=== PATIENT | female | born 2000 ===

== ENCOUNTER 2023-01-10 08:23 | Day surgery (SDC) | payer OTHER ==
[2023-01-04 10:44] LABS: HEMATOCRIT 40.8 % (36.0-45.00); HEMOGLOBIN 13.7 g/dL (12.0-15.00); MEAN CORPUSCULAR HEMOGLOBIN 28.9 pg (27.00-32.0); MEAN CORPUSCULAR HGB CONC 33.6 g/dl (32.0-36.0); PLATELET COUNT 404 K/uL (150-450); RED BLOOD COUNT 4.75 M/uL (4.00-6.00); RED CELL DISTRIBUTION WIDTH 14.1 % (11.5-14.5)
[2023-01-04 12:12] LABS: INR 1.08; PARTIAL THROMBOPLASTIN TIME 34.2 SECONDS (22.0-34.0); PROTHROMBIN TIME 11.3 SECONDS (9.0-11.5)
[2023-01-04 12:18] LABS: BILIRUBIN TOTAL 0.56 mg/dL (0.3-1.2); CALCIUM 9.4 mg/dL (8.5-10.1); CREATININE SERUM 0.5 mg/dL (0.55-1.02); GFR 154.28; GLOBULINA 3.6 G/DL (2.4-3.5); POTASSIUM 4.67 mEq/L (3.5-5.1); TOTAL PROTEIN 7.6 gm/dL (6.4-8.2)
[2023-01-10] MEDS ORDERED: PERCOCET 5-3251 EACH PO (10:50)
[2023-01-10] MEDS ORDERED: PEPCID20 MG PO (10:50)
[2023-01-10] MEDS ORDERED: KETO10TA2 PO (10:51)
[2023-01-10] MEDS ORDERED: ZOFRAN8 MG PO (10:51)
== END 2023-01-10 14:10 | disposition home or self-care (01) ==
LOC: CIR.AMB 08:23
PROVIDERS: ATTEND Surgery
DX: K80.10 Calculus of gallbladder with chronic cholecystitis without obstruction (principal); R10.11 Right upper quadrant pain; I10 Essential (primary) hypertension; Z91.013 Allergy to seafood